=== PATIENT | male | born 2000 | race Caucasian/White ===

== ENCOUNTER 2023-12-31 20:42 | Emergency (ER) | payer SELFPAY ==
[2023-12-31 20:43] VITALS: BP 137/99; PULSE 121; RESP 20; TEMP 36.6; O2SAT 95; BMI 20.3
--- NOTE | 2023-12-31 21:05 | XRR_ITS ---
PROCEDURE INFORMATION: Exam: XR Chest Exam date and time: 12/31/2023 9:32 PM Age: 23 years old Clinical indication: Patient HX: Cough; Chest congestion x 1 week; Skin rash TECHNIQUE: Imaging protocol: Radiologic exam of the chest. Views: 1 view. COMPARISON: No relevant prior studies available. FINDINGS: Lungs: Unremarkable. No consolidation. Pleural spaces: Unremarkable. No pleural effusion. No pneumothorax. Heart/Mediastinum: Unremarkable. No cardiomegaly. Bones/joints: Unremarkable. XR/XR chest 1V portable [id number] IMPRESSION: No acute findings.
--- NOTE | 2023-12-31 21:05 | W.ED.URI ---
HPI - URI/Sore Throat General: Chief Complaint: Upper Respiratory Infection Stated Complaint: skin rash, chest congest rib pain 7days Time Seen by Provider: 12/31/23 20:54 Source: patient Mode of arrival: ambulatory Limitations: no limitations History of Present Illness: Patient is a 23-year-old male who presents to the ED today for evaluation of cough, nasal congestion, sinus pain/pressure, and chest wall pain. Patient states approximately 2 to 3 weeks ago he became ill with cough, congestion, and fevers. He states fevers lasted 1 to 2 days before subsiding. He has not been febrile since. He states since then symptoms initially seemed like they were improving but then feels like he got ill again. He is complaining of yellow and green phlegm that he is coughing up and blowing from his nose. He states he is coughed so much he feels like he has pulled something in the left side of his chest. MD elicited complaint: cough, nasal congestion, sinus pain and other (chest wall pain) Onset (ago): week(s) Consistency: constant Severity: mild Description of mucous: yellow and green Able to tolerate fluids by mouth: Yes Exacerbating factors: other (coughing) Relieving factors: nothing Context: sick contacts Associated symptoms: Reports chest pain (L lateral chest wall pain), fever(s) (on day 1-2 of illness but none since), nasal congestion and sinus pain; Deny abdominal pain, chills, diarrhea, ear or mastoid pain, headache(s), nausea or vomiting Review of Systems Const: Reports: fever(s) (on day 1-2 of illness but none since); Denies: chills, body aches or fatigue Eyes: Denies: change in vision, blurry vision, photophobia, eye discomfort or eye discharge ENMT: Reports: nasal discharge, nasal congestion and sinus pain; Denies: throat pain, enlarged tonsils, odynophagia, swelling of lips/tongue, oral sores, ear or mastoid pain, ear discharge or post nasal drip Card: Reports: chest pain (L lateral chest wall pain); Denies: palpitations, irregular heart rhythm, edema, swelling of feet/ankles, lightheadedness, syncope, pre-syncope, orthopnea, leg pain with exertion or acrocyanosis Resp: Reports: productive cough and chest congestion; Denies: dyspnea, non-productive cough, wheezing or hemoptysis GI: Denies: abdominal pain, nausea, vomiting or diarrhea Musc: Denies: neck pain, back pain, extremity pain or joint pain Skin/Breast: Reports: rash (hives-subsided upon arrival after Benadryl) and pruritus Neuro: Denies: headache(s), numbness in extremities, weakness in extremities, sensory changes or dizziness All/Imm: Denies: facial swelling or seasonal rhinorrhea PFSH ED PFSH: Medical History Seasonal allergies Social History Smoking and tobacco/nicotine status: never used tobacco/nicotine Physical Exam Const: COMMON NORMALS: no acute distress, average body habitus, patient oriented x3, no limitations, healthy appearing, alert and well nourished GENERAL APPEARANCE: cooperative ORIENTATION/CONSCIOUSNESS: Yes awake, Yes oriented to person, Yes oriented to place and Yes oriented to time HENMT: COMMON NORMALS: normocephalic, atraumatic, hearing grossly normal bilaterally, external ears normal, EAC's normal, TM's normal bilaterally, Normal external nose present, Normal nasal mucous membranes and turbinates present, moist oral mucous membranes and oropharynx normal HEAD & SCALP: normal to inspection, normocephalic and atraumatic FACE & SINUS: normal facial exam and sinuses nontender NOSE: Normal external nose present and Normal nasal mucous membranes and turbinates present EXTERNAL EAR: Yes external ears normal EXTERNAL AUDITORY CANAL: EAC's normal TYMPANIC MEMBRANE: TM's normal bilaterally MOUTH: Normal oral and palatal mucosa present and lip normal THROAT: posterior oropharynx normal, tonsils normal and uvula midline Eye: COMMON NORMALS: Equal, round and reactive pupils present, EOMs intact bilaterally and conjunctivae normal CONJUNCTIVA: Yes conjunctivae normal PUPIL: Yes Equal, round and reactive pupils present Neck/C-Spine: COMMON NORMALS: no lymphadenopathy Chest: COMMONS NORMALS: normal inspection of the chest OTHER: TTP L lateral chest wall Resp: COMMON NORMALS: normal respiratory effort and clear to auscultation bilaterally AUSCULTATION: clear to auscultation bilaterally Cardio: COMMON NORMALS: regular rate and regular rhythm RATE: regular rate RHYTHM: regular rhythm GI: COMMON NORMALS: Normal to inspection, nondistended, normoactive bowel sounds present, Soft to palpation, non-tender, No hepatosplenomegaly present and no masses PALPATION: Yes Soft to palpation and Yes No hepatosplenomegaly present : COMMON NORMALS: Yes no CVA tenderness BLADDER/KIDNEY EXAM: Yes no CVA tenderness Back/Pelvis: COMMON NORMALS: no CVA tenderness Extremity: GENERAL: Yes normal exam except as noted Neuro: COMMON NORMALS: patient oriented x3, moves all extremities, no focal motor deficits, no sensory deficits noted and gait normal SENSORIUM/ORIENTATION: Yes alert, Yes oriented to person, Yes oriented to place and Yes oriented to time Skin: COMMON NORMALS: no rashes or lesions noted GENERAL SKIN EXAM: no rashes or lesions noted Course Vital Signs: Vital signs: Vital Signs Temperature 98 F 12/31/23 20:43 Pulse Rate 109 H 12/31/23 21:51 Respiratory Rate 20 H 12/31/23 21:51 Blood Pressure 114/70 12/31/23 21:51 Pulse Oximetry 96 12/31/23 21:51 Oxygen Delivery Me thod Room Air 12/31/23 20:43 MDM - URI/Sore Throat Medical Decision Making Patient appears in no acute distress. His CXR is normal. Respiratory panel collected and pending. At this time I do not feel we need to perform emergent blood work or further evaluation at this time. I do not have any concerns for emergent etiology for his symptoms. Conservative/symptomatic therapies for home discussed. I told him we will contact them with any positive results on his respiratory panel. Otherwise I would like him to follow-up with primary care next week if symptoms do not seem to be improving. Differential Diagnosis Likely upper respiratory infection, sinusitis, viral infection, bronchitis, influenza and pharyngitis Medical Records I reviewed the patient's medical records. Lab Data Radiology Impressions Chest X-Ray 12/31/23 21:05 IMPRESSION: No acute findings. Laboratory Results Adenovirus (PCR) Not detected (NOT DETECT) 12/31/23 21:07 C. pneumoniae DNA (PCR) Not detected (NOT DETECT) 12/31/23 21:07 Coronavirus 229E (PCR) Not detected (NOT DETECT) 12/31/23 21:07 Human Metapneumovir PCR Not detected (NOT DETECT) 12/31/23 21:07 Influenza A (H1) PCR Not detected (NOT DETECT) 12/31/23 21:07 Influ A (H1/09) PCR Not detected (NOT DETECT) 12/31/23 21:07 Influenza A (H3) PCR Not detected (NOT DETECT) 12/31/23 21:07 Influenza Type A (PCR) Not detected (NOT DETECT) 12/31/23 21:07 Influenza Type B (PCR) Not detected (NOT DETECT) 12/31/23 21:07 M. pneumoniae (PCR) Not detected (NOT DETECT) 12/31/23 21:07 Parainfluenza 1 (PCR) Not detected (NOT DETECT) 12/31/23 21:07 Parainfluenza 2 (PCR) Not detected (NOT DETECT) 12/31/23 21:07 Parainfluenza 3 (PCR) Not detected (NOT DETECT) 12/31/23 21:07 Parainfluenza 4 (PCR) Not detected (NOT DETECT) 12/31/23 21:07 RSV Type A (PCR) Not detected (NOT DETECT) 12/31/23 21:07 RSV Type B (PCR) Not detected (NOT DETECT) 12/31/23 21:07 Entero/Rhino (PCR) Not detected (NOT DETECT) 12/31/23 21:07 SARS-CoV-2 (PCR) Not detected (NOT DETECT) 12/31/23 21:07 All radiology interpretation(s) finalized by discharge Discharge Plan Discharge Patient Disposition: Home Clinical Impression: Viral upper respiratory tract infection with cough Condition: Stable Prescriptions: No Action fluticasone propionate [Flonase Allergy Relief] 50 mcg/actuation spray,suspension 1 spray intranasal DAILY Rx Instructions: administer into each nostril fexofenadine-pseudoephedrine [Melina-D 12 Hour] 60-120 mg tablet extended release 12 hr 1 tab PO Q12H PRN (Reason: sinus symptoms) 14 Days Qty: 30 0RF Discharge Orders: Discharge ED (Routine); Ordered 12/31/23 Ordered By: Janett Teixeira Patient Instructions: Upper Respiratory Infection (DC) Coding Level of Care Code ED [employer] Technician for [facility]
[2023-12-31 21:51] VITALS: BP 114/70; PULSE 109; RESP 20; O2SAT 96
[2023-12-31 22:54] LABS: Adenovirus Not Detected (NOT DETECT); Chlamydia Pneumoniae Not Detected (NOT DETECT); Coronavirus 229E,HKU1,NL63,OC4 Not Detected (NOT DETECT); Human Metapneumovirus Not Detected (NOT DETECT); Human Rhinovirus/Enterovirus Not Detected (NOT DETECT); Influenza A Not Detected (NOT DETECT); Influenza A H1 Not Detected (NOT DETECT); Influenza A H1-2009 Not Detected (NOT DETECT); Influenza A H3 Not Detected (NOT DETECT); Influenza B Not Detected (NOT DETECT); Mycoplasma Pneumoniae Not Detected (NOT DETECT); Parainfluenza Virus Type 1 Not Detected (NOT DETECT); Parainfluenza Virus Type 2 Not Detected (NOT DETECT); Parainfluenza Virus Type 3 Not Detected (NOT DETECT); Parainfluenza Virus Type 4 Not Detected (NOT DETECT); Respiratory Syncytial Virus A Not Detected (NOT DETECT); Respiratory Syncytial Virus B Not Detected (NOT DETECT); SARS-COV-2 Not Detected (NOT DETECT)
== END 2023-12-31 22:00 | disposition home or self-care (01) ==
PROVIDERS: Emergency Provider Physician Assistant
DX: J06.9 Acute upper respiratory infection, unspecified (principal); R05.9 Cough, unspecified; Z11.52 Encounter for screening for COVID-19
CPT/HCPCS: 71045; 87486; 87581; 87633; 99284